=== PATIENT | female | born 1945 | race Caucasian/White ===

== ENCOUNTER 2018-09-05 16:09 | Observation (INO) ==
[2018-09-05] MEDS ORDERED: NITROGLYCERIN SL ONE (17:25)
[2018-09-05] MEDS ORDERED: ASPIRIN PO ONE (17:25)
[2018-09-05 17:44] LABS: URINE SOURCE CLEAN CATCH
[2018-09-05 17:48] LABS: BASO# 0.05 X1000 (0.0-0.2); BASO% 0.6 % (0.0-0.8); BILIRUBIN URINE NEGATIVE (NEGATIVE); BLOOD URINE NEGATIVE (NEGATIVE); COLOR STRAW; EOS% 1.2 % (0.0-10.0); GLUCOSE URINE NEGATIVE (NEGATIVE); HEMATOCRIT 36.9 % (37.0-47.0); KETONE URINE NEGATIVE (NEGATIVE); LEUKOCYTES URINE SMALL (NEGATIVE); LYMPH# 2.51 X1000 (1.2-3.4); LYMPH% 30.4 % (20.5-51.1); MCHC 32.5 g/dL (33-37); MCV 89.1 FL (81-99); MONO# 0.48 X1000 (0.11-0.59); MONO% 5.8 % (1.7-9.3); MPV 11.8 FL (7.4-10.4); NEUT# 5.13 X1000 (1.4-6.5); NITRITE URINE NEGATIVE (NEGATIVE); PH URINE 5.5; PLT 168 X1000 (130-400); PROTEIN URINE NEGATIVE (NEGATIVE); RBC 4.14 XMIL (4.2-5.4); RDW 13.7 % (11.5-14.5); TURBIDITY URINE CLEAR (CLEAR); UR EPITHELIAL CELLS <10 /HPF (<10); URINE BACTERIA NEGATIVE /HPF; URINE RBC <10 /HPF (<10); URINE WBC <10 /HPF (<10); UROBILINOGEN URINE NORMAL (NORMAL); WBC 8.27 X1000 (4.8-10.8)
[2018-09-05 18:09] LABS: AGAP 11; BUN 18 mg/dL (8-22); CALCIUM 9.7 mg/dL (8.8-10.2); CHLORIDE 104 mmol/L (98-107); CK PROFILE 43 U/L (24-173); COSMO 288; CREATININE 0.8 mg/dL (0.5-0.9); ESTIMATED GFR > 60; GLUCOSE 126 mg/dL (70-104); POTASSIUM 3.6 mmol/L (3.5-5.1); SODIUM 143 mmol/L (136-145); TCO2 28 mmol/L (25-35)
[2018-09-05] MEDS ORDERED: TORADOL IV PRN (18:14)
[2018-09-05] MEDS ORDERED: MORPHINE IV PRN (18:14)
--- NOTE | 2018-09-05 18:14 | PROVIDER DOCUMENTATION ---
This chart was entered by Shu Patricia Scribe, acting as scribe for Michael Pike MD. HPI-Chest Pain - General Chief Complaint: Chest Pain Stated Complaint: CHEST PAIN Time Seen by Provider: 09/05/18 16:48 Source: patient, family Allergies/Adverse Reactions: Patient Allergies Allergy/AdvReac Type Severity Reaction Status Date / Time simvastatin Allergy Mild Unknown Verified 08/27/18 18:24 hydrochlorothiazide Allergy Unknown Unknown Verified 08/27/18 18:24 Home Medications: Home Medication List Medication Instructions Recorded Confirmed Last Taken Type Digoxin 125 mcg PO DAILY 08/31/12 09/05/18 12/10/15 History Diltiazem HCl [Dilt-Cd] 240 mg PO DAILY 08/31/12 09/05/18 12/10/15 History Losartan [Cozaar] 50 mg PO DAILY 08/31/12 09/05/18 12/10/15 History Albuterol 2.5MG/Ipratrop 0.5MG 3 ml INH Q4H PRN PRN #0 neb 05/01/13 09/05/18 Rx [Duoneb (A & A)] Furosemide [Lasix] 40 mg PO DAILY #5 tablet 05/01/13 09/05/18 12/10/15 Rx Brimonidine 0.15% Ophth Soln 1 drop BOTH EYES BID 11/04/14 09/05/18 12/10/15 History [Alphagan P 0.15% Ophth Soln] Metformin [Glucophage] 750 mg PO DAILY 12/10/15 09/05/18 12/09/15 History Apixaban [Eliquis] 5 mg PO BID 07/30/18 09/05/18 Unknown History - History of Present Illness-CP Nature of Presenting Problem: 72 yowf presents to the ed with c/o chest pain with nausea and dizziness onset today while working in the house Location: reports: substernal Quality of Pain: reports: dull Severity in ED: moderate Onset/Duration: this morning Timing: still present Context/Activities at Onset: reports: moderate activity (cleaning house) Modifying Factors: improves with: nothing. worse with: palpation Associated Symptoms: reports: dizziness. denies: fatigue, shortness of breath Nitro Today/Relief: no nitro taken today Prior Chest Pain/Cardiac Workup: reports: other (afib) Similar Symptoms Previously?: Yes Review of Systems - Adult - REVIEW OF SYSTEMS - ADULT Constitutional: denies: chills, fever Eyes: denies: blurred vision, double vision Ears, Nose, Mouth & Throat: reports: no symptoms reported Cardiovascular: reports: chest pain, palpitations Respiratory: reports: cough. denies: shortness of breath, wheezing Gastrointestinal: denies: abdominal pain, diarrhea, nausea Genitourinary: reports: no symptoms reported Musculoskeletal: reports: no symptoms reported Integumentary: reports: no symptoms reported Neurological: denies: dizziness/vertigo, headache/migraines Psychiatric: reports: no symptoms reported Endocrine: reports: no symptoms reported Hematologic/Lymphatic: reports: no symptoms reported Allergic/Immunologic: reports: no symptoms reported All Other Systems: Reviewed and Negative Past History - Adult - PAST MEDICAL HISTORY-ADULT Review of Records: reports: Old Records Reviewed, Nursing Assessment Review, Medications Reviewed, Social history reviewed & non-contributory. Major Childhood Illnesses: reports: denies history Cardiovascular: reports: A-Fib, arrhythmia, CHF, HTN, hyperlipidemia Respiratory: reports: denies history Gastrointestinal: reports: denies history Obstetrical/Gynecological: reports: denies history Genitourinary: reports: denies history Musculoskeletal: reports: arthritis Neurological: reports: denies history Psychiatric: reports: anxiety Endocrine/Immune: reports: Diabetes Diabetes Type: Type 2 Diabetes controlled by:: PO Meds Other Conditions: reports: denies history - PRIOR SURGERIES/PROCEDURES Surgical/Procedure History: reports: orthopedic (extremity) (left knee) - IMMUNIZATION STATUS Childhood Immunizations: See Nurse Assessment Flu Vaccine: See Nurse Assessment - FAMILY HISTORY Family History: reviewed, not pertinent - SOCIAL HISTORY Smoking: secondhand, chew Provider spent 3-5 mins advising pt. on dangers of tobacco.: Discussed manners to quit use, and f/u contacts for add'l counseling. Substance Use: denies Alcohol Use Frequency: never Living Situation: family Physical Exam-General - PHYSICAL EXAM-ADULT Initial Vital Signs Reviewed: Yes - CONSTITUTIONAL General Appearance: appears well, alert, obese - EYES Eyes: PERRL/EOMI, pink conjunctivae - HEAD, EARS, NOSE, MOUTH & THROAT HENMT: moist mucous membranes, dental decay - NECK Neck: full range of motion, normal inspection - RESPIRATORY Respiratory: lungs clear, normal breath sounds, other (chest wall tender with palpation) - CARDIOVASCULAR Cardiovascular: normal peripheral pulses, bradycardia (55) - GASTROINTESTINAL (ABDOMEN) Abdominal Exam: normal bowel sounds, non tender, soft - LYMPHATIC Lymphatic: no adenopathy - MUSCULOSKELETAL Back Exam: normal inspection, no CVA tenderness, no vertebral tenderness Extremity: normal range of motion, non-tender, normal gait, normal inspection - SKIN Integumentary: normal color, normal turgor, warm/dry - NEUROLOGIC Neurologic: grossly normal, no motor/sensory deficits - PSYCHIATRIC Psych/Mental Status: normal mood/affect, normal thought content, normal thought process, oriented x 3 Progress - PLAN OF CARE/RESULTS Progress/Plan/Lab Results: Vital Signs - 8 hr 09/05/18 17:14 Temperature 97.8 F Pulse Rate 55 L Respiratory Rate 20 Blood Pressure 140/56 O2 Sat by Pulse Oximetry 100 Laboratory Results - last 24 hr 09/05/18 09/05/18 09/05/18 17:36 17:36 17:36 WBC 8.27 RBC 4.14 L Hgb 12.0 Hct 36.9 L MCV 89.1 MCH 29.0 MCHC 32.5 L RDW Std Deviation 13.7 Plt Count 168 MPV 11.8 H Immature Gran % (Auto) 0.0 Neut % (Auto) 62.0 Lymph % (Auto) 30.4 [place] % (Auto) 5.8 Eos % (Auto) 1.2 Baso % (Auto) 0.6 Immature Gran # (Auto) 0.00 Neut # (Auto) 5.13 Lymph # (Auto) 2.51 [place] # (Auto) 0.48 Eos # (Auto) 0.10 Baso # (Auto) 0.05 D-Dimer, Quantitative < 0.27 Troponin T < 0.010 Urine Source Urine Color Urine Turbidity Urine pH Ur Specific [place] Urine Protein Ur Glucose (Stick) Ur Ketones (Stick) Urine Blood Urine Nitrite Urine Bilirubin Urobilinogen Dipstick Urine Leukocytes Urine WBC (Auto) Urine RBC (Auto) U Epithel Cells (Auto) Urine Bacteria (Auto) 09/05/18 17:36 WBC RBC Hgb Hct MCV MCH MCHC RDW Std Deviation Plt Count MPV Immature Gran % (Auto) Neut % (Auto) Lymph % (Auto) [place] % (Auto) Eos % (Auto) Baso % (Auto) Immature Gran # (Auto) Neut # (Auto) Lymph # (Auto) [place] # (Auto) Eos # (Auto) Baso # (Auto) D-Dimer, Quantitative Troponin T Urine Source CLEAN CATCH Urine Color STRAW Urine Turbidity CLEAR Urine pH 5.5 Ur Specific [place] 1.000 Urine Protein NEGATIVE Ur Glucose (Stick) NEGATIVE Ur Ketones (Stick) NEGATIVE Urine Blood NEGATIVE Urine Nitrite NEGATIVE Urine Bilirubin NEGATIVE Urobilinogen Dipstick NORMAL Urine Leukocytes SMALL A Urine WBC (Auto) <10 Urine RBC (Auto) <10 U Epithel Cells (Auto) <10 Urine Bacteria (Auto) NEGATIVE Orders Category Date Time Status Saline Loc NOW Care 09/05/18 17:26 Active CHEST-2 VIEWS [RAD] Stat Exams 09/05/18 17:31 Ordered BMP [BASIC METABOLIC PANEL] [CHEM] Stat Lab 09/05/18 17:36 Received CBC WITH ELECTRONIC DIFF [HEME] Stat Lab 09/05/18 17:36 Completed CK PROFILE [SP CHEM] Stat Lab 09/05/18 17:36 Received D-DIMER [COAG] Stat Lab 09/05/18 17:36 Completed MAGNESIUM [CHEM] Stat Lab 09/05/18 17:36 Received TROPONIN T Stat Lab 09/05/18 17:36 Received URINALYSIS W/POSS RFLX CULT [URINALYSIS] Stat Lab 09/05/18 17:36 Completed URINE CULTURE [RM] Routine Lab 09/05/18 17:55 Received Aspirin Med 09/05/18 17:25 Discontinued 325 mg PO NOW ONE Nitroglycerin Sl [Nitroglycerin] Med 09/05/18 17:25 Discontinued 0.4 mg SL NOW ONE EKG [EKG] Stat Ther 09/05/18 17:26 Ordered Result Diagrams: 09/05/18 17:36 - REASSESSMENT Reassessment #1 Time Reassessed: 17:38 Status: improving Reassessment #2 Time Reassessed: 18:08 Status: unchanged (chest pain history moderated worrisome for angin, troponin and d-dimer inl levels.) - EKG 1 Time of EKG reading by physician:: 16:53 EKG Read and Signed by:: Michael Pike EKG Interpretation (*Must complete 3 of following elements*): Abnormal Rate: 51 Rhythm: afib with slow ventricular response [place]: normal QRS: other (lafb) [place] Interval: normal ST Wave: normal Comments: anterolateral infarct, age undetermined - XRAY 1 XRAY Study: Chest Impression: See EMR Report Comparison with other Films: no changes XRAY Interpretation: hyperexpanded, COPD, no acute changes, no cardiomegally - CONSULTS/PCP/HOSPITALIST Notification #1 *Consult/PCP/Hospitalist*: discussed with dr aguillon, dr almeida is the attending Time Discussed: 18:12 (admit for chest pain) Consult Disposition: Admit Departure - Departure Date of Disposition Decision: 09/05/18 Time of Disposition Decision: 18:13 DIAGNOSIS: Chest pain, A-fib Disposition: ADMITTED INPATIENT 09 Certified Medical Emergency: Emergent Condition: Stable Referrals and Follow-Ups: Obdulio Almeida MD [Primary Care Provider] - - Critical Care Note This patient required my direct & personal management of CC.: No Attestation - Physician/ TRISHA Attestation Patient care was provided by Advanced Practice Provider:: No The physician spent face to face time with patient:: Yes Advanced Practice Provider documentation review:: Supervising physician onsite and consulted in the evaluation and care of this patient. The physician did have a face to face encounter with the patient. This chart was documented by the indicated scribe, (Shu Patricia Scribe) and accurately reflects the services I performed and decisions made by me, Michael Pike MD, as attested by the provider's signature.
[2018-09-05] MEDS ORDERED: NITROGLYCERIN SL PRN (18:18)
[2018-09-05] MEDS ORDERED: NITROGLYCERIN TOP ONE (18:41)
--- NOTE | 2018-09-05 19:41 | Diag Imaging Result Doc PS360 ---
EXAM: CHEST-2 VIEWS INDICATION: CP TECHNIQUE: 2 views COMPARISON: 11/13/2016 FINDINGS: There is evidence of prior granulomatous disease, stable. The lungs are grossly clear. There is no discrete pleural fluid collection or pneumothorax. There is stable prominent epicardial fat pad at the heart apex. The cardiac mediastinal silhouette and central vasculature are grossly unremarkable, otherwise. IMPRESSION: No evidence of acute pathology by plain radiograph. Electronically signed by Renato Gomez 09/05/2018 7:39 PM
[2018-09-05] MEDS ORDERED: LOVENOX SUBQ SCH (20:00)
[2018-09-05] MEDS ORDERED: SODIUM CHLORIDE 0.9% INJ SCH (23:11)
[2018-09-05] MEDS ORDERED: DUONEB (A & A) INH PRN (23:11)
[2018-09-06] MEDS: PROTONIX IV SCH
--- NOTE | 2018-09-06 00:09 | HISTORY AND PHYSICAL ---
CHIEF COMPLAINT: Chest pain since this afternoon. HISTORY OF PRESENT ILLNESS: She is a 72-year-old pleasant white female, a patient of Dr. Carrillo, with a known history of chronic atrial fibrillation, rate control, and on anticoagulation. Came in with anterior wall precordial chest pain, localized, reproducible, nonradiating. No dizziness. No shortness of breath, PND, orthopnea. EKG showed atrial fibrillation, with nonspecific changes from digitalis. Heart rate is around 50. The patient admitted to the hospital on telemetry for rule out [place] and further evaluation. As a result, a hospital admission was warranted. PAST MEDICAL HISTORY: Hypertension, atrial fibrillation, gout, glaucoma, type 2 diabetes, COPD, acid reflux disease. PAST SURGICAL HISTORY: Appendectomy, cholecystectomy, hysterectomy, bilateral cataract surgery. MEDICATIONS: Diltiazem 240 daily, Lanoxin 125 mcg daily, losartan 50 mg daily, DuoNeb q.4 hours as needed, Lasix 40 daily, Alphagan 1 drop both eyes b.i.d., metformin 750 daily , Eliquis 5 mg b.i.d. ALLERGIES: Simvastatin. SOCIAL HISTORY: . Two kids. Lives in [place]. 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 Dips tobacco. No alcohol. Mother of 2 children. FAMILY HISTORY: Father of an [place]. Father of liver cancer. HEALTH MAINTENANCE: Flu vaccine 2018. Last mammography 2015. REVIEW OF SYSTEMS: HEENT: No Headache. No vision problems. No earache. No sore throat. Neck: No neck pain. No goiter. No lymphadenopathies. Cardiopulmonary: Chest pain, precordial area, nonradiating, reproducible. No shortness of breath, PND, orthopnea. GI: Multiple scars noted. No nausea, vomiting, abdominal pain. Last CT scan of the abdomen and pelvis done on 06/20/2018 is unremarkable. : No history of hesitancy, frequency dysuria. No swelling of legs. No joint pains. Neurologic: No focal symptoms, seizures, or dizziness. PHYSICAL EXAMINATION: VITAL SIGNS: Temperature is afebrile. Pulse is 45. Vitals are stable. HEENT: Atraumatic, normocephalic. Pupils equal, react to light. Cataracts removed. Edentulous. Poor dentition. Tongue is in midline. NECK: Supple. JVD is not elevated. No goiter. CHEST: Bilateral air entry. HEART: Sounds are irregular, very bradycardic. No murmurs noted. Reproducible pain. ABDOMEN: Belly is soft, nontender. Multiple scars, right upper quadrant. Midline abdominal scar present. No signs of peritonitis. No ascites. No peripheral edema. NEUROLOGIC: No focal deficits. INVESTIGATIONS: Chest x-ray: COPD changes. EKG: Atrial fibrillation. Slow ventricular response. Nonspecific changes. Labs: CBC is normal. D-dimer is normal. SMA- 7 is normal. Cardiac enzymes, magnesium, troponin were normal. Urinalysis is clear. ASSESSMENT AND PLAN: 1. A 72-year-old white female, admitted to the hospital with chest pain, atypical and reproducible, most likely musculoskeletal pain, with underlying chronic atrial fibrillation. Admitted to the hospital on telemetry for rule out myocardial infarction. If the enzymes are negative, we will schedule for a myocardial perfusion scan. Follow up on serial cardiac enzymes. 2. Deep vein thrombosis prophylaxis. No need, since the patient is on Eliquis. 3. Type 2 diabetes. Hold metformin. Continue on sliding scale with insulin coverage. Reconcile home medications. 4. Slow ventricular response. Hold the diltiazem. Check the digoxin levels in the morning. Continue on telemetry. Dr. Carrillo is going to follow up in the morning. cc: Ananth Durham MD MTDD
[2018-09-06] MEDS: HUMULIN R SUBQ SCH ×5 (00:28→20:31)
[2018-09-06 05:19] LABS: BASO# 0.05 X1000 (0.0-0.2); BASO% 0.6 % (0.0-0.8); EOS# 0.14 X1000 (0.0-0.7); EOS% 1.8 % (0.0-10.0); HEMATOCRIT 36.4 % (37.0-47.0); HEMOGLOBIN 11.9 g/dL (12.0-16.0); LYMPH% 42.1 % (20.5-51.1); MCHC 32.7 g/dL (33-37); MCV 88.8 FL (81-99); MONO# 0.55 X1000 (0.11-0.59); MPV 12.1 FL (7.4-10.4); NEUT% 48.5 % (42.2-75.2); PLT 150 X1000 (130-400); RDW 13.5 % (11.5-14.5); WBC 7.84 X1000 (4.8-10.8)
[2018-09-06 05:37] LABS: HEMOGLOBIN A1C 6.1 % (4.8-6.0)
[2018-09-06 05:38] LABS: AGAP 11; BUN 17 mg/dL (8-22); CALCIUM 9.8 mg/dL (8.8-10.2); CHLORIDE 107 mmol/L (98-107); CHOLESTEROL 119 mg/dL (0-200); CK PROFILE 30 U/L (24-173); COSMO 289; CREATININE 0.7 mg/dL (0.5-0.9); ESTIMATED GFR > 60; GLUCOSE 104 mg/dL (70-104); HDL 48 mg/dL (45-65); LDL 59 mg/dL; POTASSIUM 3.6 mmol/L (3.5-5.1); SODIUM 144 mmol/L (136-145); TCO2 26 mmol/L (25-35); TRIGLYCERIDES 60 mg/dL (35-135); VLDL 12 mg/dL
--- NOTE | 2018-09-06 07:23 | EKG Report ---
Test Performed on : 09/06/2018 06:51:02 AM Test Reason : cp Blood Pressure : / mmHG Vent. Rate : 045 BPM Atrial Rate : 267 BPM P-R Int : 000 ms QRS Dur : 104 ms QT Int : 380 ms P-R-T Axes : 000 -60 156 degrees QTc Int : 328 ms Atrial fibrillation. with slow ventricular response. Left anterior fascicular block Possible Anterior infarct (cited on or before 10-APR-2007) ST & T wave abnormality, consider lateral ischemia Abnormal ECG When compared with ECG of 05-SEP-2018 18:43, (Unconfirmed) QT has shortened Confirmed by Gloria CAMARENA, Jesus Avery ([id number]) on 09/06/2018 8:12:17 AM
--- NOTE | 2018-09-06 07:27 | EKG Report ---
Test Performed on : 09/05/2018 4:53:31 PM Test Reason : cp Blood Pressure : / mmHG Vent. Rate : 051 BPM Atrial Rate : 069 BPM P-R Int : 000 ms QRS Dur : 096 ms QT Int : 406 ms P-R-T Axes : 000 -56 155 degrees QTc Int : 374 ms Atrial fibrillation. with slow ventricular response. Left anterior fascicular block Anterolateral infarct (cited on or before 10-APR-2007) Abnormal ECG When compared with ECG of 13-NOV-2016 17:22, QT has shortened Unconfirmed Result
--- NOTE | 2018-09-06 07:28 | EKG Report ---
Test Performed on : 09/05/2018 6:43:50 PM Test Reason : CP, bradycardia Blood Pressure : / mmHG Vent. Rate : 056 BPM Atrial Rate : 055 BPM P-R Int : 000 ms QRS Dur : 098 ms QT Int : 414 ms P-R-T Axes : 000 -56 162 degrees QTc Int : 399 ms Atrial fibrillation. with slow ventricular response. Left anterior fascicular block Anterolateral infarct (cited on or before 10-APR-2007) Abnormal ECG When compared with ECG of 05-SEP-2018 16:53, (Unconfirmed) No significant change was found Unconfirmed Result
--- NOTE | 2018-09-06 07:49 | PROGRESS NOTE ---
DATE: 09/06/2018 SUBJECTIVE: A 72-year-old female patient, known case of hypertension, NIDDM, atrial fibrillation, history of gout, and glaucoma admitted with chest pain which was left precordial. It has some typical and some atypical features. The patient evaluated in the ER, admitted for further care. Her initial workup did reveal negative cardiac isoenzymes. EKG did not reveal any acute ST-T wave changes. Because of her multiple risk factors and vague history, we decided to admit the patient for further care and workup. The patient is doing better. Her chest pain improved. No nausea or vomiting. PAST MEDICAL HISTORY: Admission history and physical noted. OBJECTIVE: Vital Signs: Blood pressure 127/54, pulse 49, respirations 16, temperature 97.6 degrees. Skin: Senile turgor. Neck: Supple. No JVD. Lungs: Bibasilar crepitation. Heart: S1 and S2 heard. Abdomen: Soft, nontender. Bowel sounds present. 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 Able to move all 4 limbs. CONSIDERATION: 1. Chest pain. With her multiple risk factors, we are going to consider myocardial perfusion scan. 2. Hypertension. 3. Insulin-dependent diabetes mellitus. 4. Glaucoma. 5. Atrial fibrillation. PLAN: Overall plan discussed with the patient, and the patient is in agreement. cc: MD Ananth Smith MD
[2018-09-06] MEDS: ELIQUIS PO SCH ×3 (10:05→20:30)
[2018-09-06] MEDS: ALPHAGAN P 0.15% OPHTH SOLN BOTH EYES SCH ×3 (10:15→20:31)
[2018-09-06] MEDS: COZAAR PO SCH (10:16)
[2018-09-06] MEDS ORDERED: LEXISCAN ONE (12:44)
--- NOTE | 2018-09-06 18:39 | Diag Imaging Result Document ---
PROCEDURE NAME: MYOCARDIAL PERF SCAN, STR/REST - 09/06/2018 REST/STRESS MYOCARDIAL PERFUSION STUDY INDICATION: Patient with atrial fibrillation, abnormal EKG, chest pain. DESCRIPTION: The patient came in the nuclear lab and received a rest injection of technetium 99 sestamibi 11.5 mCi. Multiple tomographic views of the cardiac structures were obtained at rest. Subsequently the patient underwent infusion of Lexiscan, with 0.4 mg of Lexiscan infused. At peak infusion he was injected with technetium-99 sestamibi 31.2 mCi. Multiple tomographic views of the cardiac structures were obtained following the completion of protocol. SUMMARY OF ELECTROCARDIOGRAPHIC PORTION OF STUDY: Resting ECG shows atrial fibrillation, rate 52 beats per minute. Resting ECG shows diffuse ST and T abnormality, poor R-wave progression. During the protocol, the heart rate increased to a maximum of 72 beats per minute. Blood pressure dropped to 98/51. The patient reported no chest pain, shortness of breath or palpitations. ECG showed no significant changes. In summary, electrocardiographic response to an infusion of Lexiscan is deemed to be negative for ischemia. SUMMARY OF MYOCARDIAL PERFUSION PORTION OF STUDY: Poststress tomographic views of the left ventricle show normal homogeneous distribution of radiotracers throughout the entire length of the myocardium. There was no evidence of any poststress defect. Rest images showed normal perfusion. Polar plots revealed the same. No evidence of any inducible ischemia nor myocardial scar. Gated SPECT showed preserved ejection fraction estimated at 79%. Normal ventricular volumes. No wall motion abnormality. Lung/heart ratio is normal. TID is normal. SUMMARY: This study shows: 1. Unremarkable electrocardiographic response to infusion of Lexiscan. 2. Essentially normal poststress myocardial perfusion scan. There is no scintigraphic evidence of pharmacologically induced myocardial ischemia. 3. Normal left ventricular systolic function. Ejection fraction is estimated at 79%. Normal ventricular volumes. No wall motion abnormality. This study represents low risk for ischemic events. cc: MD Ananth Sparrow MD
[2018-09-07] MEDS: PROTONIX IV SCH (05:54)
[2018-09-07] MEDS: HUMULIN R SUBQ SCH (06:07)
[2018-09-07 08:09] VITALS: BP 129/51
[2018-09-07] MEDS: ELIQUIS PO SCH (09:13)
[2018-09-07] MEDS: COZAAR PO SCH (09:13)
[2018-09-07] MEDS: ALPHAGAN P 0.15% OPHTH SOLN BOTH EYES SCH (09:59)
--- NOTE | 2018-09-07 11:41 | PROGRESS NOTE ---
DATE: 09/07/2018 SUBJECTIVELY: Ms. Weathers is doing better. She denied any chest pain. No high-grade fever or chills. No unusual cough or expectoration. The patient is vague and poor historian. OBJECTIVE: Vital signs: Noted. Neck: Supple. No JVD. Lungs: Bibasilar crepitations. Heart: S1 and S2 heard. Irregularly irregular. Abdomen: Soft, nontender. Bowel sounds present. Extremities: No cyanosis, clubbing. No acute DVT. 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 Able to move all 4 limbs. LABORATORY DATA: Noted. Patient's myocardial perfusion scan result noted and discussed with the patient. ASSESSMENT AND PLAN: 1. The patient admitted with chest pain. Myocardial infarction ruled out by negative cardiac isoenzymes. Her stress test was negative. 2. Her other problem includes noninsulin dependent diabetes mellitus. Her hemoglobin A1c was 6.1. 3. Hypertension. Patient does have glaucoma. 4. History of gout. 5. Osteoarthritis. Labs and medications noted and discussed with the patient. Overall discharge medications reviewed and discussed with the patient. Follow up with me as scheduled. In case of more distress, call us back or go to the emergency room. Discharge condition satisfactory. cc: MD Ananth Smith MD
== END 2018-09-07 12:30 | disposition home or self-care (01) ==
LOC: SUPCPDRO → ED 16:09 → EDIPHOLD 20:00 → INTOOBSV 20:00 → 3N 09-06 00:14
PROVIDERS: ADMIT Internal Medicine; ATTEND Internal Medicine
CPT/HCPCS: 71020; 71046; 78452; 80048; 80061; 80162; 81001; 82550; 82948; 83036; 83735; 83880; 84484; 85025; 85379; 87088; 93005; 93010; 93017; 94640; 99285; A9270; A9500; C9113; J2785; S0164; XXXXX

== ENCOUNTER 2019-12-01 10:51 | Inpatient (IN) ==
--- NOTE | 2019-12-01 12:57 | EKG Report ---
Test Performed on : 12/01/2019 11:38:16 AM Test Reason : SOB Blood Pressure : / mmHG Vent. Rate : 097 BPM Atrial Rate : 105 BPM P-R Int : 000 ms QRS Dur : 096 ms QT Int : 354 ms P-R-T Axes : 000 -55 130 degrees QTc Int : 449 ms Atrial fibrillation. Left anterior fascicular block Anterior infarct , age undetermined ST & T wave abnormality, consider lateral ischemia Abnormal ECG When compared with ECG of 12-JUN-2019 16:11, Vent. rate has increased BY 48 BPM Incomplete right bundle branch block is no longer present Confirmed by Edgar CAMARENA, Andrade Munoz ([id number]) on 12/02/2019 9:37:22 AM
[2019-12-01] MEDS ORDERED: LASIX IV ONE (13:15)
[2019-12-01 14:33] LABS: BASO# 0.03 X1000 (0.0-0.2); BASO% 0.2 % (0.0-0.8); EOS# 0.06 X1000 (0.0-0.7); EOS% 0.4 % (0.0-10.0); HEMATOCRIT 38.3 % (37.0-47.0); HEMOGLOBIN 12.4 g/dL (12.0-16.0); IMM GRAN# 0.04 X1000 (0.0-0.04); IMM GRAN% 0.3 % (0.0-0.5); LYMPH# 1.85 X1000 (1.2-3.4); LYMPH% 12.8 % (20.5-51.1); MCH 29.3 PG (27-31); MCHC 32.4 g/dL (33-37); MCV 90.5 FL (81-99); MONO# 0.94 X1000 (0.11-0.59); MONO% 6.5 % (1.7-9.3); MPV 12.5 FL (7.4-10.4); NEUT# 11.48 X1000 (1.4-6.5); NEUT% 79.8 % (42.2-75.2); PLT 148 X1000 (130-400); RBC 4.23 XMIL (4.2-5.4); RDW 14.4 % (11.5-14.5)
[2019-12-01 14:42] LABS: HEMOGLOBIN A1C 6.1 % (4.8-6.0)
[2019-12-01 14:44] LABS: INR 1.37; PROTIME 17.1 Seconds (11.0-16.0)
[2019-12-01 14:45] LABS: PTT 30.8 Seconds (22.3-41.8)
[2019-12-01 14:57] LABS: ALB/GLOB RATIO 1.2; ALBUMIN 3.9 g/dL (3.5-5.0); CALCIUM 10.2 mg/dL (8.8-10.2); TOTAL BILIRUBIN 1.61 mg/dL (0.20-1.00); TOTAL PROTEIN 7.1 g/dL (6.3-8.3)
[2019-12-01 15:46] LABS: ALLEN TEST YES; BE -0.3 mmoll (-3.0-3.0); BLOOD TYPE ARTERIAL; HCO3-(ACT) 24.4 mmoll (20.0-26.0); METHB 1.5 % (0.0-1.5); O2(CT) 16.6 mL/dL (15.0-23.0); PCO2(98.6) 32 mmHg (35-45); SAMPLE BLOOD; SAO2 91.9 % (95.0-100.0); THB 13.4 g/dL (11.5-17.4); pH(98.6) 7.46 (7.35-7.45)
[2019-12-01 15:48] LABS: MODALITY ROOM AIR; O2HB 88.2 % (95.0-99.0); PO2(98.6) 48 mmHg (60-100)
[2019-12-01] MEDS ORDERED: DUONEB (A & A) INH SCH (16:00)
[2019-12-01] MEDS ORDERED: ROCEPHIN 1 GM in NS 50 ML IV SCH (17:30)
[2019-12-01] MEDS ORDERED: ZITHROMAX 500 MG/NS 500 MG/250 ML IVPB IV SCH (17:30)
[2019-12-01] MEDS: ROCEPHIN 1 GM in NS 50 ML IV SCH (18:46)
[2019-12-01] MEDS ORDERED: VENTOLIN HFA INH PRN (18:51)
--- NOTE | 2019-12-01 19:25 | HISTORY AND PHYSICAL ---
CHIEF COMPLAINT: Shortness of breath. Ms. Weathers, 74-year-old white female patient started getting sick last night. The patient was complaining of chest congestion, cough, wheezing, vague chest pain. The patient did have shortness of breath. She did have malaise. Complaining of pain in the right hip. The patient claims she was hurting. The patient is very vague and poor historian. No high-grade fever or chills. The patient came to the office for evaluation. I evaluated the patient. Because of her vague history, shortness of breath I decided to admit patient for further care. The patient also gained some weight. I was concerned about congestive heart failure. Complaining of vague chest pain, cough with scanty sputum production. The patient denied known exposure to COVID-19 patient. The patient was getting short of breath with undue exertion. No hemoptysis. The patient does have history suggestive of COPD. No hemoptysis. Denied abdominal pain, nausea, vomiting. At times constipation. No diarrhea. No dysuria or hematuria. No blood or mucus in the stool. No heat or cold intolerance. Arthritic pain in the right hip, also in the knee joint. Patient was complaining of vague abdominal pain. At times dysuria, no hematuria. Patient was complaining of being constipated. History part was very limited. ALLERGIES: Zocor, hydrochlorothiazide. PAST MEDICAL HISTORY: Diffuse osteoarthritis, hypertension, NIDDM, history suggestive of gout, COPD, patient does have visual impairment, constipation, history of glaucoma, unquantified weight loss, osteoarthritis. PERSONAL HISTORY: , lives with the . Nonsmoker. Patient dips. Patient is legally blind. Needs minimal assistance in activities of daily living. FAMILY HISTORY: Noncontributory. REVIEW OF SYSTEMS: As per HPI. Otherwise unobtainable. MEDICATION: Noted. PHYSICAL EXAMINATION: GENERAL: Elderly white female patient in mild distress. VITAL SIGNS: Blood pressure 168/70, pulse 80, respirations 20, temperature 98 degrees. SKIN: Senile turgor. Head atraumatic, normocephalic. [place] conjunctivae. Anicteric sclerae. Extraocular muscle movement normal. Fundus cannot be penetrated. Good oral hygiene. No tonsillopharyngeal congestion or exudate. Ears and nose benign. NECK: Supple. No JVD, thyromegaly or lymphadenopathy. CHEST: Bibasilar crepitation. Occasional wheezing. No rales. CARDIOVASCULAR: S1 and S2 heard, 2/6 systolic murmur at the apex. No gallop or thrill. ABDOMEN: Soft. No distention. Bowel sounds present. Tenderness in the epigastrium. No guarding or rigidity. EXTREMITIES: No cyanosis, clubbing. No acute DVT. Minimal swelling around ankles. EXAMINING OFFICER: Alert, awake, answering questions fairly well. Able to move all 4 limbs. Significant crepitation both the knee joints. Vague tenderness lumbosacral spine. Patient admitted with shortness of breath, vague chest pain. Her proBNP was elevated [*]. Her blood gas revealed pH 7.46, pCO2 32, PO2 was 48. This was done on room air. The patient was hypoxemic. Her CBC revealed WBC count 14.40, hemoglobin 12.4, hematocrit 38.3, platelet count 148,000, patient does have left shift. PT/INR 1.37, PTT 30.8. CBC result also reviewed. CONSIDERATION: Shortness of breath. The patient is hypoxemic. Chest x-ray official result is pending. The patient was taking her Eliquis regularly. 1. Chronic obstructive pulmonary disease exacerbation. 2. Congestive heart failure. Possibility of bronchopneumonia cannot be ruled out. Her other problems includes non-insulin dependent diabetes mellitus on Glucophage, paroxysmal atrial fibrillation, osteoarthritis of the knee and history of gout. Patient is legally blind. PLAN: Admit the patient. IV Lasix, IV antibiotics, symptomatic treatment and close observation. Overall plan discussed at length with the patient and she is in agreement. I am going to check her for COVID-19. I will also get echocardiogram. Her EKG noted. cc: Obdulio Carrillo MD
--- NOTE | 2019-12-01 19:29 | Diag Imaging Result Doc PS360 ---
EXAM: XRAY HIP W/O PELVIS VONNIE 3-4VWS 12/01/2019 HISTORY: SOB TECHNIQUE: Bilateral hips, four views COMMENT: The joint spaces are well-maintained. There is some osteophyte formation laterally in the acetabula. The appearance of the pelvis and hips has not changed appreciably since 07/22/2012. IMPRESSION: No evidence of acute disease. Electronically signed by Franco Payne 12/01/2019 7:26 PM
--- NOTE | 2019-12-01 19:29 | Diag Imaging Result Doc PS360 ---
EXAM: ABDOMEN FLAT/UPRIGHT 12/01/2019 HISTORY: SOB TECHNIQUE: Flat and upright abdomen COMMENT: There is a fairly large amount of stool present in the colon. The stomach and small bowel are not distended. The appearance of the abdomen was somewhat similar at the time the previous study of 11/03/2014. IMPRESSION: Constipation. Electronically signed by Franco Payne 12/01/2019 7:27 PM
--- NOTE | 2019-12-01 19:30 | Diag Imaging Result Doc PS360 ---
EXAM: CHEST-PORTABLE 12/01/2019 HISTORY: shortness of breath TECHNIQUE: Erect AP portable at 1856 COMMENT: There is pleural and parenchymal fibrosis laterally on the left which has not changed since 08/01/2019. There is blunting of the costophrenic angle on the right which was not previously present. IMPRESSION: New right pleural effusion. Electronically signed by Franco Payne 12/01/2019 7:28 PM
[2019-12-01 19:59] LABS: URINE SOURCE CLEAN CATCH
[2019-12-01 20:04] LABS: BILIRUBIN URINE NEGATIVE (NEGATIVE); BLOOD URINE NEGATIVE (NEGATIVE); COLOR YELLOW; GLUCOSE URINE NEGATIVE (NEGATIVE); KETONE URINE NEGATIVE (NEGATIVE); LEUKOCYTES URINE SMALL (NEGATIVE); NITRITE URINE NEGATIVE (NEGATIVE); PH URINE 6.5; PROTEIN URINE NEGATIVE (NEGATIVE); TURBIDITY URINE CLEAR (CLEAR); UROBILINOGEN URINE 2 mg/dL (NORMAL)
[2019-12-01 20:06] LABS: UR EPITHELIAL CELLS <10 /HPF (<10); URINE BACTERIA NEGATIVE /HPF; URINE RBC <10 /HPF (<10); URINE WBC <10 /HPF (<10)
[2019-12-01] MEDS: ZITHROMAX 500 MG/NS 500 MG/250 ML IVPB IV SCH (20:41)
[2019-12-01] MEDS ORDERED: ELIQUIS PO SCH (21:00)
[2019-12-01] MEDS ORDERED: ZYLOPRIM PO SCH (21:00)
[2019-12-01] MEDS ORDERED: COSOPT OPHTH SOLN BOTH EYES SCH (21:00)
[2019-12-01] MEDS: ZYLOPRIM PO SCH (23:22)
[2019-12-01] MEDS: ELIQUIS PO SCH (23:22)
[2019-12-01] MEDS: COSOPT OPHTH SOLN BOTH EYES SCH (23:22)
[2019-12-01] MEDS: NORCO-5 PO PRN (23:31)
[2019-12-02] MEDS: HUMALOG SUBQ SCH ×5 (02:39→22:33)
[2019-12-02 07:04] LABS: BASO# 0.04 X1000 (0.0-0.2); BASO% 0.3 % (0.0-0.8); EOS# 0.09 X1000 (0.0-0.7); EOS% 0.7 % (0.0-10.0); HEMATOCRIT 36.3 % (37.0-47.0); HEMOGLOBIN 11.9 g/dL (12.0-16.0); IMM GRAN# 0.02 X1000 (0.0-0.04); IMM GRAN% 0.1 % (0.0-0.5); LYMPH# 2.25 X1000 (1.2-3.4); LYMPH% 16.5 % (20.5-51.1); MCH 29.4 PG (27-31); MCHC 32.8 g/dL (33-37); MCV 89.6 FL (81-99); MONO% 8.8 % (1.7-9.3); MPV 11.9 FL (7.4-10.4); NEUT# 10.07 X1000 (1.4-6.5); NEUT% 73.6 % (42.2-75.2); PLT 139 X1000 (130-400); RBC 4.05 XMIL (4.2-5.4); RDW 14.4 % (11.5-14.5); RETIC% 1.55 % (0.8-2.1); RETIC-HE 31.7 PG (28.2-36.6); WBC 13.67 X1000 (4.8-10.8)
[2019-12-02 07:21] LABS: AGAP 10; ALB/GLOB RATIO 1.6; ALKALINE PHOSPHATASE 124 U/L (32-104); BUN 19 mg/dL (8-22); CALCIUM 10.3 mg/dL (8.8-10.2); CHLORIDE 100 mmol/L (98-107); CHOLESTEROL 121 mg/dL (0-200); COSMO 276; CREATININE 0.8 mg/dL (0.5-0.9); DIGOXIN 0.4 ng/mL (0.9-2.0); ESTIMATED GFR > 60; GLUCOSE 124 mg/dL (70-104); GOT 14 U/L (10-30); GPT 17 U/L (10-36); HDL 56 mg/dL (45-65); LDL 54 mg/dL; MAGNESIUM 1.7 mg/dL (1.5-2.7); PHOSPHORUS 2.7 mg/dL (2.7-4.5); POTASSIUM 3.3 mmol/L (3.5-5.1); SODIUM 136 mmol/L (136-145); TCO2 26 mmol/L (25-35); TOTAL BILIRUBIN 2.17 mg/dL (0.20-1.00); TOTAL IRON 42 ug/dL (49-151); TOTAL PROTEIN 6.5 g/dL (6.3-8.3); TRIGLYCERIDES 55 mg/dL (35-135); VLDL 11 mg/dL
[2019-12-02 07:36] LABS: FREE T4 0.97 ng/dL (0.93-1.70); TSH 2.16 uIUmL (0.27-4.20)
[2019-12-02] MEDS ORDERED: LASIX IV ONE (07:54)
[2019-12-02 08:04] LABS: SED RATE 21 mm/hr (0-20)
--- NOTE | 2019-12-02 08:47 | PROGRESS NOTE ---
DATE: 12/02/2019 SUBJECTIVELY: Ms. Weathers is doing better. The patient does get short of breath with undue exertion. The patient had low-grade fever yesterday up to 100.9 degrees. Does have cough with scanty sputum production. No nausea or vomiting. Oral intake is fair. Denied any chest pain. At times, palpitation. No dysuria or hematuria. Patient admitted with shortness of breath. Her proBNP was elevated. OBJECTIVE: Vital signs: Blood pressure 163/80, pulse 104, respirations 20, temperature 98.7 degrees. HEENT: Fundus cannot be penetrated. Lungs: Bibasilar crepitations. Heart: S1 and S2 heard. Abdomen: Soft, globular. Bowel sounds present. Extremities: No cyanosis, clubbing. No acute DVT. Central nervous system: Alert, awake, able to move all 4 limbs. LABORATORY DATA AND DIAGNOSTICS: I did a chest x-ray yesterday which did reveal a right pleural effusion. Abdominal x-ray revealed constipation. Her flu test was negative. Hip x-ray, no evidence of acute disease. Blood work done today did reveal hypokalemia. WBC count was 13.67, hemoglobin 11.9, hematocrit 36.3, platelet count was 139,000. Her reticulocyte count was 1.55. Potassium this morning was 3.3, calcium 10.3. TSH 2.16, free T4 of 0.97. CONSIDERATION: The patient admitted with shortness of breath, multifactorial, chronic obstructive pulmonary disease exacerbation, uncompensated congestive heart failure. We are checking her for Coronavirus Disease 2019. The patient does have paroxysmal atrial fibrillation, Insulin-dependent diabetes mellitus, osteoarthritis, anemia. I am going to supplement her potassium. Continue the rest of the treatment. Close observation. Overall plan discussed with the patient and she is in agreement. I am going to consider echocardiogram down the road. cc: Obdulio Carrillo MD
[2019-12-02] MEDS ORDERED: LINZESS PO SCH (09:00)
[2019-12-02] MEDS ORDERED: CARDIZEM CD PO SCH (09:00)
[2019-12-02] MEDS ORDERED: COZAAR PO SCH (09:00)
[2019-12-02] MEDS ORDERED: LANOXIN PO SCH (09:00)
[2019-12-02] MEDS: COSOPT OPHTH SOLN BOTH EYES SCH ×2 (09:20→22:32)
[2019-12-02] MEDS: LINZESS PO SCH (09:21)
[2019-12-02] MEDS: CARDIZEM CD PO SCH (09:21)
[2019-12-02] MEDS: ELIQUIS PO SCH ×2 (09:22→22:32)
[2019-12-02] MEDS: KLOR-CON PO SCH ×2 (09:22→22:32)
[2019-12-02] MEDS: LANOXIN PO SCH (09:22)
[2019-12-02] MEDS: ZYLOPRIM PO SCH ×2 (09:22→22:32)
[2019-12-02] MEDS: COZAAR PO SCH (09:22)
[2019-12-02] MEDS: ROCEPHIN 1 GM in NS 50 ML IV SCH (17:27)
[2019-12-02] MEDS: NORCO-5 PO PRN (17:29)
[2019-12-02] MEDS: ZITHROMAX 500 MG/NS 500 MG/250 ML IVPB IV SCH (18:28)
[2019-12-03 06:24] LABS: BASO# 0.05 X1000 (0.0-0.2); BASO% 0.5 % (0.0-0.8); EOS# 0.24 X1000 (0.0-0.7); EOS% 2.4 % (0.0-10.0); HEMATOCRIT 35.1 % (37.0-47.0); HEMOGLOBIN 11.5 g/dL (12.0-16.0); IMM GRAN# 0.02 X1000 (0.0-0.04); IMM GRAN% 0.2 % (0.0-0.5); LYMPH# 2.75 X1000 (1.2-3.4); LYMPH% 27.4 % (20.5-51.1); MCH 29.4 PG (27-31); MCHC 32.8 g/dL (33-37); MCV 89.8 FL (81-99); MPV 12.3 FL (7.4-10.4); NEUT# 6.07 X1000 (1.4-6.5); NEUT% 60.5 % (42.2-75.2); PLT 159 X1000 (130-400); RBC 3.91 XMIL (4.2-5.4); RDW 14.4 % (11.5-14.5); WBC 10.03 X1000 (4.8-10.8)
[2019-12-03 06:54] LABS: AGAP 12; ALB/GLOB RATIO 1.2; ALBUMIN 3.6 g/dL (3.5-5.0); ALKALINE PHOSPHATASE 110 U/L (32-104); BUN 26 mg/dL (8-22); CALCIUM 10.3 mg/dL (8.8-10.2); CHLORIDE 104 mmol/L (98-107); COSMO 285; CREATININE 0.9 mg/dL (0.5-0.9); ESTIMATED GFR > 60; GLUCOSE 113 mg/dL (70-104); GOT 14 U/L (10-30); GPT 16 U/L (10-36); POTASSIUM 4.2 mmol/L (3.5-5.1); SODIUM 140 mmol/L (136-145); TCO2 24 mmol/L (25-35); TOTAL BILIRUBIN 1.09 mg/dL (0.20-1.00); TOTAL PROTEIN 6.7 g/dL (6.3-8.3)
[2019-12-03] MEDS: HUMALOG SUBQ SCH ×4 (07:20→22:47)
--- NOTE | 2019-12-03 07:26 | PROGRESS NOTE ---
DATE: 12/03/2019 SUBJECTIVE: Ms. Weathers is feeling better. Chest congestion, cough improving. The patient is afebrile. No nausea or vomiting. Her hip pain is better. Her shortness of breath is improving. OBJECTIVE: Vital Signs: Noted. Neck: Supple. No JVD. Lungs: Bilateral good air entry present. Occasional wheezing. CVS: S1 and S2 heard. A 2/6 systolic murmur at the apex. Abdomen: Soft, nontender. Bowel sounds present. Extremities: No cyanosis, clubbing. No acute DVT. DISTRIBUTION COLLECTION OPERATOR: Alert, awake. Answering questions fairly well. Laboratory Data: Done today, hemoglobin 11.5, hematocrit 35.1, WBC count 10.3, platelet count 159,000. Her electrolytes were fairly benign. BUN 26, creatinine 0.9. Lipid panel results reviewed. Vitamin B12 was 351. I am going to give her a dose of vitamin B12. Continue rest of the treatment. Close observation. cc: Obdulio Carrillo MD
[2019-12-03] MEDS: COZAAR PO SCH (08:25)
[2019-12-03] MEDS: KLOR-CON PO SCH ×2 (08:25→22:40)
[2019-12-03] MEDS: ELIQUIS PO SCH ×2 (08:26→22:40)
[2019-12-03] MEDS: ZYLOPRIM PO SCH ×2 (08:26→22:40)
[2019-12-03] MEDS: CARDIZEM CD PO SCH (08:26)
[2019-12-03] MEDS: LANOXIN PO SCH (08:26)
[2019-12-03] MEDS: LASIX PO SCH (08:26)
[2019-12-03] MEDS: LINZESS PO SCH (08:27)
[2019-12-03] MEDS: COSOPT OPHTH SOLN BOTH EYES SCH ×2 (08:27→22:40)
[2019-12-03 13:03] LABS: HEPATITIS PROFILE ACUTE SEE COMMENTS
[2019-12-03] MEDS: ROCEPHIN 1 GM in NS 50 ML IV SCH (17:33)
[2019-12-03] MEDS: ZITHROMAX 500 MG/NS 500 MG/250 ML IVPB IV SCH (18:12)
[2019-12-04] MEDS: HUMALOG SUBQ SCH ×4 (06:51→20:55)
--- NOTE | 2019-12-04 07:48 | PROGRESS NOTE ---
DATE: 12/04/2019 SUBJECTIVE: Ms. Weathers is doing fair. She denied any fever or chills. No nausea or vomiting. The patient does get short of breath with undue exertion. Her Covid-19 test was negative. No typical chest pain. OBJECTIVE: Vital Signs: Reviewed. Neck: Supple. No JVD. Lungs: Bibasilar crepitations. Heart: S1 and S2 heard. Abdomen: Soft, globular. Bowel sounds present. CV TECH: Alert, awake. Able to move all 4 limbs. CONSIDERATION: 1. Paroxysmal atrial fibrillation. 2. Acute bronchitis and chronic obstructive pulmonary disease exacerbation. 3. Right hip pain. 4. Gastritis and reflux disease. 5. Osteoarthritis. PLAN: Overall, patient is doing better. We will continue current treatment and close observation. cc: Obdulio Carrillo MD
--- NOTE | 2019-12-04 07:55 | Diag Imaging Result Doc PS360 ---
EXAM: CHEST-PORTABLE 12/04/2019 HISTORY: sob TECHNIQUE: AP portable at 0745 COMMENT: Compared to 12/01/2019 there has been some clearing of the right costophrenic angle. There is minimal increase in hazy density over the right lower lobe however. IMPRESSION: Questionable right lower lobe pneumonia. Improved right pleural effusion. Electronically signed by Franco Payne 12/04/2019 7:52 AM
[2019-12-04] MEDS: KLOR-CON PO SCH ×2 (08:07→20:54)
[2019-12-04] MEDS: ZYLOPRIM PO SCH ×2 (08:07→20:54)
[2019-12-04] MEDS: COZAAR PO SCH (08:07)
[2019-12-04] MEDS: ELIQUIS PO SCH ×2 (08:07→20:54)
[2019-12-04] MEDS: LASIX PO SCH (08:07)
[2019-12-04] MEDS: CARDIZEM CD PO SCH (08:07)
[2019-12-04] MEDS: COSOPT OPHTH SOLN BOTH EYES SCH ×2 (08:08→20:54)
[2019-12-04] MEDS: LINZESS PO SCH (08:08)
[2019-12-04] MEDS: ROCEPHIN 1 GM in NS 50 ML IV SCH (17:54)
[2019-12-04] MEDS: DUONEB (A & A) INH SCH (22:05)
[2019-12-05] MEDS: DUONEB (A & A) INH SCH ×3 (03:32→10:26)
[2019-12-05] MEDS: HUMALOG SUBQ SCH ×2 (06:19→11:05)
--- NOTE | 2019-12-05 06:52 | DISCHARGE SUMMARY ---
ADMISSION DATE: 12/01/2019 DISCHARGE DATE: FINAL DISCHARGE DIAGNOSES: 1. Acute asthmatic bronchitis. 2. Pneumonia. 3. Chronic obstructive pulmonary disease exacerbation. 4. Mild congestive heart failure due to diastolic dysfunction. 5. Hypoxemia, improved. 6. Paroxysmal atrial fibrillation. 7. Gastritis. 8. Osteoarthritis. 9. History of gout. HOSPITAL COURSE: Ms. Weathers, a 74-year-old female patient, admitted with chest congestion, cough, shortness of breath, decreased exercise tolerance. The patient also had vague chest pain. No high-grade fever or chills. The patient was getting short of breath with minimal exertion, complaining of pain in the right hip. I evaluated patient in the office, admitted her to regular floor on telemetry. On initial evaluation patient found to be hypoxemic. Her proBNP was minimally elevated. The patient was given IV Lasix, IV antibiotics, pulmonary toilet and bronchodilator treatment. Because of her overall health we entertained possibility of coronavirus infection, checked her for the same and it was negative. Overall patient is doing much better. At times, her heart rate was staying low. I discontinued her Lanoxin, but we continued her Cardizem. The patient is feeling better, able to ambulate well. No fever or chills. Chest congestion and cough improved. Repeat chest x-ray did reveal questionable pneumonia. The patient is eager to go home. PHYSICAL EXAMINATION: Her vital signs noted. Blood pressure 118/42, pulse 73, respirations 18, temperature 98 degrees, O2 saturation on room air staying between 97 and 99. Neck is supple. No JVD. Lungs: Bibasilar crepitation. Heart: S1 and S2 heard. Abdomen: Soft, scaphoid. Bowel sounds present. Extremities: No cyanosis, clubbing. No acute DVT. VALVE PIPE IRRIGATOR: Alert, awake able to move all 4 limbs. The patient does have glaucoma. Overall she received maximum benefit of hospitalization. The patient is eager to go home and will discharge her home today. Her sedimentation rate was 21. Hemoglobin 11.5, hematocrit 35.1, platelet count 159,000. Initial blood gas, pH 7.46, PO2 of 48, pCO2 was 32, O2 saturation was 91.9. Electrolytes done on December 02 noted potassium 4.2, sodium 140, BUN 26, creatinine 0.9. Chest x-ray done yesterday reviewed. COVID-19 test was negative. Hepatitis panel was negative. Overall discharge condition satisfactory. I evaluated patient for home oxygen need and it was negative. I am going to discharge patient home on oral antibiotics, give her nebulizer and breathing treatment. Continue home medicine except Lanoxin. Follow up with me in 1 week. In case of more distress, call us back or go to the emergency room. Continue rest of the medications. cc: Obdulio Carrillo MD
[2019-12-05] MEDS: KLOR-CON PO SCH ×2 (07:57→08:06)
[2019-12-05] MEDS: COZAAR PO SCH ×2 (07:58→08:06)
[2019-12-05] MEDS: CARDIZEM CD PO SCH ×2 (07:58→08:05)
[2019-12-05] MEDS: LASIX PO SCH ×2 (07:58→08:06)
[2019-12-05] MEDS: LINZESS PO SCH ×2 (07:58→08:06)
[2019-12-05] MEDS: ZYLOPRIM PO SCH ×2 (07:58→08:05)
[2019-12-05] MEDS: COSOPT OPHTH SOLN BOTH EYES SCH (07:59)
[2019-12-05] MEDS: ELIQUIS PO SCH ×2 (07:59→08:06)
[2019-12-05 11:15] VITALS: BP 132/60
== END 2019-12-05 14:30 | disposition home health service (06) | DRG 291 ==
LOC: DIRADM 10:51 → 3N 12:13 → 4N 17:40
PROVIDERS: ADMIT Internal Medicine; ATTEND Internal Medicine